=== PATIENT | female | born 1935 ===

== ENCOUNTER 2021-03-05 06:25 | Day surgery (SDC) | payer OTHER ==
[~2021-03-05 06:25] MED LIST: ATACAND4 MG PO
[2021-03-05] MEDS ORDERED: NEURONTIN300 MG PO (17:42)
== END 2021-03-05 19:30 | disposition home or self-care (01) ==
LOC: CIR.AMB 06:25
PROVIDERS: ATTEND Surgery
DX: R19.5 Other fecal abnormalities (principal); Z20.822 Contact with and (suspected) exposure to COVID-19
CPT/HCPCS: 64590; 64581; 95972; C1778; L8679

== ENCOUNTER 2022-10-26 07:27 | Day surgery (SDC) | payer OTHER ==
[~2022-10-26 07:27] MED LIST changes: +NEURONTIN300 MG PO
== END 2022-10-26 11:35 | disposition home or self-care (01) ==
LOC: AMB-ENDOS 07:27
PROVIDERS: ATTEND Surgery
DX: Z12.11 Encounter for screening for malignant neoplasm of colon (principal); R15.9 Full incontinence of feces; R14.3 Flatulence; K59.09 Other constipation; Z20.822 Contact with and (suspected) exposure to COVID-19; Z88.0 Allergy status to penicillin; Z88.1 Allergy status to other antibiotic agents